=== PATIENT | female | born 1995 | race African-American/Black ===

== ENCOUNTER 2019-03-22 15:16 | Emergency (ER) | payer OTHER ==
[2019-03-22 15:24] VITALS: BP 141/92
[2019-03-22] MEDS ORDERED: ONDANSETRON ODT 4 MG TABLET TL STA (16:51)
--- NOTE | 2019-03-22 16:53 | ED Physician Documentation ---
History of Present Illness - Stated complaint Stated Complaint: NAUSEA - Chief complaint Chief Complaint: Abd Pain - Additonal information Additional information: This is a 23-year-old female who denies past medical history who presents with nausea and abdominal discomfort since eating lunch. She ate lunch at 1 PM. Since then she had nausea and a feeling of abdominal fullness. She denies any vomiting, fever, or abnormal bowel movements. No dysuria. She has discomfort which is somewhat migratory focus more on the left upper quadrant and left lower quadrant. She has never had any abdominal surgeries. No pelvic symptoms. Review of Systems Constitutional: denies: Fever Nose: denies: Rhinorrhea / runny nose Cardiac: denies: Chest pain / pressure Respiratory: denies: Dyspnea GI: reports: Abdominal Pain, Nausea : denies: Dysuria Skin: denies: Rash Neurologic: denies: Generalized weakness PD PAST MEDICAL HISTORY - Past Medical History Past Medical History: No - Past Surgical History Past Surgical History: No - Present Medications Home Medications: Ambulatory Orders Medication Instructions Recorded Confirmed Ondansetron Odt [Zofran] 4 mg TL Q6H PRN #10 tablet 03/22/19 - Allergies Allergies/Adverse Reactions: Allergies Allergy/AdvReac Type Severity Reaction Status Date / Time No Known Drug Allergies Allergy Verified 03/22/19 15:25 - Social History Does the pt smoke?: No Smoking Status: Never smoker Does the pt drink ETOH?: Yes Does the pt have substance abuse?: No - Immunizations Immunizations are current?: Yes - POLST Patient has POLST: No PD ED PE NORMAL - Vitals Vital signs reviewed: Yes - General General: Alert and oriented X 3, No acute distress - HEENT HEENT: PERRL - Neck Neck: Supple, no meningeal sign - Cardiac Cardiac: RRR - Respiratory Respiratory: No respiratory distress, Clear bilaterally - Abdomen Abdomen: Soft, Other (Very mildly tender in the left upper quadrant, epigastrium, and left lower quadrant. No right lower quadrant tenderness) - Derm Derm: Warm and dry - Extremities Extremities: No deformity - Neuro Neuro: Alert and oriented X 3 - Psych Psych: Normal mood, Normal affect Results - Vitals Vitals: Vital Signs - 24 hr 03/22/19 15:22 Temperature 36.2 C L Heart Rate 79 Respiratory 18 Rate Blood Pressure 141/92 H O2 Saturation 100 Oxygen O2 Source Room air - Labs Labs: Laboratory Tests 03/22/19 03/22/19 03/22/19 16:50 16:50 17:10 WBC 5.5 RBC 4.74 Hgb 12.5 Hct 37.9 MCV 80.0 L MCH 26.4 L MCHC 33.0 RDW 15.1 H Plt Count 212 MPV 10.8 Neut # (Auto) 2.6 Lymph # (Auto) 2.4 [place] # (Auto) 0.4 Eos # (Auto) 0.1 Baso # (Auto) 0.0 Absolute Nucleated RBC 0.00 Nucleated RBC % 0.0 Sodium Potassium Chloride Carbon Dioxide Anion Gap BUN Creatinine Estimated GFR (MDRD) Glucose Calcium Total Bilirubin AST ALT Alkaline Phosphatase Total Protein Albumin Globulin Albumin/Globulin Ratio Lipase Urine Color YELLOW Urine Clarity CLEAR Urine pH 6.0 Ur Specific [place] 1.015 1.015 Urine Protein NEGATIVE Urine Glucose (UA) NEGATIVE Urine Ketones NEGATIVE Urine Occult Blood NEGATIVE Urine Nitrite NEGATIVE Urine Bilirubin NEGATIVE Urine Urobilinogen 0.2 (NORMAL) Ur Leukocyte Esterase NEGATIVE Ur Microscopic Review NOT INDICATED Urine Culture Comments NOT INDICATED Urine HCG, Qual NEGATIVE 03/22/19 17:10 WBC RBC Hgb Hct MCV MCH MCHC RDW Plt Count MPV Neut # (Auto) Lymph # (Auto) [place] # (Auto) Eos # (Auto) Baso # (Auto) Absolute Nucleated RBC Nucleated RBC % Sodium 138 Potassium 3.9 Chloride 105 Carbon Dioxide 25 Anion Gap 8.0 BUN 17 Creatinine 1.0 Estimated GFR (MDRD) 83 L Glucose 89 Calcium 9.5 Total Bilirubin 0.4 AST 16 ALT 15 Alkaline Phosphatase 43 Total Protein 8.0 Albumin 4.2 Globulin 3.8 Albumin/Globulin Ratio 1.1 Lipase 19 L Urine Color Urine Clarity Urine pH Ur Specific [place] Urine Protein Urine Glucose (UA) Urine Ketones Urine Occult Blood Urine Nitrite Urine Bilirubin Urine Urobilinogen Ur Leukocyte Esterase Ur Microscopic Review Urine Culture Comments Urine HCG, Qual PD MEDICAL DECISION MAKING - ED course Complexity details: considered differential (Gastroenteritis, biliary colic, cholecystitis, appendicitis, enteritis, , UTI, pyelonephritis.) ED course: On exam patient is well-appearing, she has a benign abdominal exam with some diffuse very mild tenderness. Labs were drawn, CBC is unremarkable, CMP and lipase are also unremarkable. hCG is negative, urine shows no signs of infection. She was given Zofran for symptoms and this did improve her nausea. On reevaluation she continues have a benign abdominal examination with no focal tenderness in the right upper quadrant right lower quadrant. She did not have any pelvic symptoms to suggest pelvic pathology. I think she may have a early gastroenteritis or perhaps some reaction to the food that she ate, I do not see signs of acute abdominal process. No specific right upper quadrant tenderness and no LFT elevation to suggest cholecystitis. I discussed the results with the patient and recommend that she follow-up with her primary care provider if her symptoms do not resolved. If she has worsening symptoms such as vomiting, pain that settles into the specific area of the abdomen, or fever, she will return to the emergency department. Departure - Departure Disposition: 01 Home, Self Care Clinical Impression: Nausea Condition: Good Instructions: ED Abdominal Pain Unkn Cause Follow-Up: EMILIANO FOSS MD [Primary Care Provider] - As Needed (For any persistent symptoms) Prescriptions: Ondansetron Odt [Zofran] 4 mg TL Q6H PRN #10 tablet PRN Reason: Nausea / Vomiting Comments: You were seen today for nausea and abdominal discomfort. Your labs are reassuring, and I do not see signs of an obvious emergent condition at this time. If you develop new or worsening symptoms such as pain that locates over the right lower part of your abdomen or right upper part of abdomen, recurrent vomiting, or any other concerning symptoms please return to the emergency department. Otherwise you may follow-up with your primary care provider as needed. Forms: Activity restrictions Discharge Date/Time: 03/22/19 18:22
[2019-03-22 17:02] LABS: BILIRUBIN,URINE NEGATIVE (NEGATIVE); CLARITY,URINE CLEAR (CLEAR); GLUCOSE, URINE (UA) NEGATIVE (NEGATIVE); KETONES,URINE (UA) NEGATIVE (NEGATIVE); LEUKOCYTE ESTERASE, URINE NEGATIVE (NEGATIVE); NITRITE,URINE NEGATIVE (NEGATIVE); OCCULT BLOOD,URINE NEGATIVE (NEGATIVE); PROTEIN,URINE NEGATIVE (NEGATIVE); UROBILINOGEN,URINE 0.2 (NORMAL) E.U./dL (NORMAL)
[2019-03-22 17:13] LABS: BASOPHILS % (AUTO) 0.4 %; EOSINOPHILS # (AUTO) 0.1 10^3/uL (0.0-0.7); EOSINOPHILS % (AUTO) 2.2 %; HGB - HEMOGLOBIN 12.5 g/dL (12.0-16.0); LYMPHOCYTES # (AUTO) 2.4 10^3/uL (1.5-3.5); LYMPHOCYTES % (AUTO) 43.4 %; MEAN CORPUSCULAR HEMOGLOBIN 26.4 pg (27.0-31.0); MEAN PLATELET VOLUME 10.8 fL (7.9-10.8); MONOCYTES # (AUTO) 0.4 10^3/uL (0.0-1.0); MONOCYTES % (AUTO) 7.6 %; NEUTROPHILS # (AUTO) 2.6 10^3/uL (1.5-6.6); NEUTROPHILS % (AUTO) 46.2 %; PLT - PLATELET COUNT 212 10^3/uL (130-450); RED BLOOD COUNT 4.74 10^6/uL (4.20-5.40); RED CELL DISTRIBUTION WIDTH 15.1 % (12.0-15.0); WHITE BLOOD COUNT 5.5 x10^3/uL (4.8-10.8)
[2019-03-22 17:29] LABS: ALBUMIN 4.2 g/dL (3.2-5.5); ALBUMIN/GLOBULIN RATIO 1.1 (1.0-2.2); BILIRUBIN,TOTAL 0.4 mg/dL (0.2-1.0); CALCIUM 9.5 mg/dL (8.5-10.3)
[2019-03-22 18:00] LABS: HCG UR QUAL NEGATIVE
== END 2019-03-22 18:22 | disposition home or self-care (01) ==
LOC: ED 15:16
DX: R11.0 Nausea (principal); R10.12 Left upper quadrant pain; R10.32 Left lower quadrant pain; R10.13 Epigastric pain
CPT/HCPCS: 36415; 80053; 81003; 81025; 83690; 85025; 99283; 99284; Q0162; 81001; 87086

== ENCOUNTER 2019-12-20 09:19 | Outpatient (CLI) | payer OTHER ==
--- NOTE | 2019-12-20 13:17 | MRI Report ---
Reason: HEADACHE Procedure Date: 12/20/2019 Accession Number: [id number] / [id number] Procedure: MRI - Brain W/WO CPT Code: Final Report FULL RESULT: PROCEDURE: Brain W/WO INDICATIONS: HEADACHE CONTRAST: IV CONTRAST: Gadavist ml: 10 TECHNIQUE: Noncontrast axial T1 spin echo, axial T2 fast spin echo, sagittal and axial FLAIR, coronal T2 fast spin echo, axial gradient echo, axial diffusion and ADC through the brain. After the administration of contrast, axial and coronal T1 spin echo with fat saturation through the brain. COMPARISON: None. FINDINGS: Image quality: Excellent. CSF spaces: Basal cisterns are patent. No extra-axial fluid collections. Ventricles are normal in size and shape. Brain: No midline shift. No intracranial bleeds or masses. No abnormal intracranial enhancement. There is cerebral volume loss for age. There is periventricular white matter chronic small vessel ischemic change. The brainstem appears normal. Diffusion-weighted images demonstrate no acute ischemic insults. No chronic ischemic insults. Normal intravascular flow voids are present. Skull and face: Calvarial marrow is normal in signal. Orbits appear normal. Sinuses: Sinuses and mastoids appear clear. IMPRESSION: A cause of headache cannot be seen on these images. No masses or abnormal enhancement can be seen. Reviewed by: Yosef Wells MD on 12/20/2019 12:16 PM [facility] Approved by: Yosef Wells MD on 12/20/2019 12:16 PM [facility] Station ID: [id number]
== END 2019-12-20 09:20 | disposition home or self-care (01) ==
LOC: DI 09:19
DX: R51 Headache (principal)
CPT/HCPCS: 70553; A9585